=== PATIENT | female | born 1975 | race Caucasian/White ===

== ENCOUNTER → 2018-02-06 | Outpatient (CLI) | payer OTHER ==
[~2018-02-06] MED LIST: ACET-1256 PO; ASCO10003 PO; BUPR150T7 PO; CHLO50TA; DLB500 PO; FERR1TAB13 PO; MULTTAB58 PO; POTA1CAP2 PO; RANI150T85 PO; SERT50TA PO
== END | disposition home or self-care (01) ==
LOC: C.PAPS 13:46
PROVIDERS: ATTEND Obstetrics & Gynecology
DX: Z01.419 Encounter for gynecological examination (general) (routine) without abnormal findings (principal); R87.615 Unsatisfactory cytologic smear of cervix